=== PATIENT | female | born 1965 | race Two or more races ===

== ENCOUNTER 2023-04-03 06:20 | Day surgery (SDC) | payer OTHER ==
[~2023-04-03] VITALS: Ht 149.9 cm; Wt 60.3 kg
[~2023-04-03 06:20] MED LIST: ANASTROZOLE1 MG PO; BUSPIRONE HCL15 MG PO; DESVENLAFAXINE100 MG PO; LEVO-T25 MCG PO; ZETIA10 MG PO
== END 2023-04-03 19:50 | disposition home or self-care (01) ==
LOC: CIR.AMB 06:20
PROVIDERS: ATTEND Surgery
DX: C50.411 Malignant neoplasm of upper-outer quadrant of right female breast (principal); C77.3 Secondary and unspecified malignant neoplasm of axilla and upper limb lymph nodes; N60.82 Other benign mammary dysplasias of left breast; R92.1 Mammographic calcification found on diagnostic imaging of breast; Z15.01 Genetic susceptibility to malignant neoplasm of breast; Z20.822 Contact with and (suspected) exposure to COVID-19; E11.9 Type 2 diabetes mellitus without complications; I10 Essential (primary) hypertension; N62 Hypertrophy of breast
CPT/HCPCS: 19303; 38525; 38792; 19357; 14301; 14302; 19285; C1789

== ENCOUNTER 2023-05-19 10:49 | Outpatient (CLI) | payer OTHER | END 2023-05-19 11:10 | disposition home or self-care (01) | LOC: SONOGRAMA 10:49 | PROVIDERS: ATTEND Plastic Surgery | DX: C50.911 Malignant neoplasm of unspecified site of right female breast (principal); L76.82 Other postprocedural complications of skin and subcutaneous tissue ==

== ENCOUNTER 2023-05-22 12:09 | Outpatient (CLI) | payer OTHER | END 2023-05-22 12:27 | disposition home or self-care (01) | LOC: SONOGRAMA 12:09 | PROVIDERS: ATTEND Surgery | DX: N61.0 Mastitis without abscess (principal); N61.1 Abscess of the breast and nipple ==

== ENCOUNTER 2023-06-19 05:54 | Day surgery (SDC) | payer OTHER ==
[2023-06-15 10:06] LABS: PH,URINE 6.5 (5.0-8.0); URINE APPEARANCE Clear; URINE BILIRRUBIN Negative (NEGATIVE); URINE BLOOD Negative; URINE COLOR Yellow; URINE GLUCOSE Negative (NEGATIVE); URINE LEUKOCYTE Trace; URINE NITRATE Negative; URINE PROTEIN Negative (NEGATIVE); URINE UROBILINOGEN 0.2 E.U./dl
[2023-06-15 10:10] LABS: URINE BACTERIA 22.6 uL (0.0-1933); URINE EPITHELIAL CELLS 4.6 uL (0.0-38.8); URINE RBC 5.8 uL (0.0-20.8); URINE WBC 4.7 uL (0.0-23.2)
[2023-06-15 10:23] LABS: HEMATOCRIT 39.4 % (36.0-45.00); HEMOGLOBIN 12.7 g/dL (12.0-15.00); MEAN CELL VOLUME 88.7 fL (80.00-100.00); MEAN CORPUSCULAR HEMOGLOBIN 28.5 pg (27.00-32.0); MEAN CORPUSCULAR HGB CONC 32.2 g/dl (32.0-36.0); PLATELET COUNT 320 K/uL (150-450); RED BLOOD COUNT 4.45 M/uL (4.00-6.00); RED CELL DISTRIBUTION WIDTH 13.6 % (11.5-14.5)
[2023-06-15 10:40] LABS: INR 1.02; PARTIAL THROMBOPLASTIN TIME 28.2 SECONDS (22.0-34.0); PROTHROMBIN TIME 10.7 SECONDS (9.0-11.5)
[2023-06-15 10:44] LABS: CALCIUM 9.4 mg/dL (8.5-10.1); CREATININE SERUM 0.65 mg/dL (0.55-1.02); GFR 93.95; POTASSIUM 4.34 mEq/L (3.5-5.1)
== END 2023-06-19 11:50 | disposition home or self-care (01) ==
LOC: CIR.AMB 05:54
PROVIDERS: ATTEND Plastic Surgery
DX: C50.411 Malignant neoplasm of upper-outer quadrant of right female breast (principal); Z90.13 Acquired absence of bilateral breasts and nipples; E78.5 Hyperlipidemia, unspecified; E03.9 Hypothyroidism, unspecified